=== PATIENT | female | born 1990 | race Hispanic/Latino ===

== ENCOUNTER 2017-09-03 22:38 | Emergency (ER) | payer BC ==
[2017-09-03 22:44] VITALS: BP 147/92; PULSE 84; RESP 18; TEMP 98.2; O2SAT 100
--- NOTE | 2017-09-03 23:41 | ED PDOC ---
HPI: CCC, URI, Sore Throat Time Seen by Provider: 09/03/17 22:46 Chief Complaint (Nursing): ENT Problem Chief Complaint (Provider): Sore throat x 1 days History Per: Patient History/Exam Limitations: no limitations Onset/Duration Of Symptoms: Days Current Symptoms Are (Timing): Still Present Past Medical History Vital Signs: Last Vital Signs Temp 98.2 F 09/03/17 22:41 Pulse 84 09/03/17 22:41 Resp 18 09/03/17 22:41 BP 147/92 H 09/03/17 22:41 Pulse Ox 100 09/03/17 22:41 - Home Medications Home Medications: Ambulatory Orders Medication Instructions Recorded Azithromycin [Zithromax] 250 mg PO DAILY #6 tab 09/03/17 - Allergies Allergies/Adverse Reactions: Allergies Allergy/AdvReac Type Severity Reaction Status Date / Time diphenhydramine Allergy Mild hallucinate Verified 09/03/17 22:45 [From Benadryl] s Penicillins Allergy Mild hives Verified 09/03/17 22:45 Physical Exam - Reviewed Nursing Documentation Reviewed: Yes Vital Signs Reviewed: Yes - Physical Exam Appears: Positive for: Well, Non-toxic, No Acute Distress Head Exam: Positive for: ATRAUMATIC, NORMAL INSPECTION, NORMOCEPHALIC Skin: Positive for: Normal Color, Warm, DRY Eye Exam: Positive for: Normal appearance ENT: Positive for: Normal ENT Inspection Neck: Positive for: Normal, Painless ROM Cardiovascular/Chest: Positive for: Regular Rate, Rhythm Respiratory: Positive for: CNT, Normal Breath Sounds Gastrointestinal/Abdominal: Positive for: Normal Exam, Soft Back: Positive for: Normal Inspection Extremity: Positive for: Normal ROM Neurologic/Psych: Positive for: Alert, Oriented - ECG O2 Sat by Pulse Oximetry: 100 Medical Decision Making Medical Decision Makin - Lab states they do not have sample. Will treat patient for strep. Disposition - Clinical Impression Clinical Impression: Pharyngitis - Patient ED Disposition Is Patient to be Admitted: No Counseled Patient/Family Regarding: Diagnosis, Need For Followup, Rx Given - Disposition [facility]errals: [facility] [Outside] Disposition: Routine/Home Disposition Time: 23:42 Condition: STABLE Prescriptions: Azithromycin [Zithromax] 250 mg PO DAILY #6 tab Instructions: Sore Throat in Adults
== END 2017-09-03 23:58 | disposition home or self-care (01) ==
LOC: H.ER 22:38
DX: J02.9 Acute pharyngitis, unspecified (principal); Z88.0 Allergy status to penicillin
CPT/HCPCS: 81025; 96372; 99282; J1100